=== PATIENT | female | born 2000 | race American Indian/Alaskan Native ===

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

== ENCOUNTER 2021-10-09 05:08 | Emergency (ER) | payer MEDICAID ==
[2021-10-09 05:27] VITALS: BP 125/64
[2021-10-09] MEDS ORDERED: methylPREDNISolone Sod Succinate 125 MG/2 ML INJ IM ONE (06:22)
[2021-10-09] MEDS ORDERED: FAMOTIDINE 20 MG TAB PO ONE (06:22)
[2021-10-09] MEDS ORDERED: diphenhydrAMINE 25 MG CAP PO ONE (06:22)
--- NOTE | 2021-10-09 06:26 | Emergency Department Report ---
ED Allergic Reaction HPI - General Chief complaint: Allergic Reaction Stated complaint: THROAT PAIN Time Seen by Provider: 10/09/21 06:07 Source: patient Mode of arrival: Ambulatory Limitations: No Limitations - History of Present Illness Initial Comments: 21-year-old black female with no past medical history presents to the emergency department for evaluation of possible allergic reaction. She states that last night around 10 PM she smoked some weed that she got from another person and she was eating at a barbecue of a friend. She states that after smoking the week, she started to have tightness in her chest and she felt swelling and tingling in her face and throat along with swelling to her bilateral eye leads.. She states that she felt like she was going to . She states that she took 1 Benadryl that made her feel some better but she still has tingling and swelling in her throat and is here for further evaluation. MD Complaint: allergic reaction -: Sudden Exposure: unknown Symptoms: facial swelling, difficulty swallowing, difficulty breathing Severity: moderate Treatment Prior to Arrival: benadryl Previous Allergy History: none - Related Data Previous Rx's Medication Instructions Recorded Last Taken Type Acetaminophen/Codeine [Tylenol 1 tab PO Q4HR PRN #12 tablet 03/16/18 Unknown Rx /Codeine # 3 tab] Clindamycin [Clindamycin CAP] 300 mg PO Q6H #56 capsule 03/16/18 Unknown Rx Clindamycin [Clindamycin CAP] 450 mg PO Q6HR #56 capsule 03/16/18 Unknown Rx Ibuprofen [Motrin 600 MG tab] 600 mg PO Q8H PRN #30 tablet 03/16/18 Unknown Rx EPINEPHrine [Epipen] 0.3 mg IJ ONCE PRN #1 pack 10/09/21 Unknown Rx Prednisone [predniSONE 10 mg 10 mg PO .TAPER #1 pack 10/09/21 Unknown Rx (6-Day Pack, 21 Tabs)] Allergies Allergy/AdvReac Type Severity Reaction Status Date / Time No Known Allergies Allergy Verified 03/16/18 03:34 ED Review of Systems ROS: Stated complaint: THROAT PAIN Other details as noted in HPI Comment: All other systems reviewed and negative Constitutional: denies: chills, fever Eyes: denies: eye pain, eye discharge ENT: denies: ear pain, throat pain, congestion Respiratory: shortness of breath. denies: cough, orthopnea, SOB with exertion, SOB at rest Cardiovascular: chest pain. denies: palpitations, dyspnea on exertion, orthopnea, edema, syncope, paroxysmal nocturnal dyspnea Endocrine: no symptoms reported Gastrointestinal: denies: abdominal pain, nausea, vomiting Genitourinary: denies: urgency, dysuria Musculoskeletal: denies: back pain Skin: denies: rash, lesions Neurological: denies: headache, weakness Psychiatric: denies: anxiety, depression Hematological/Lymphatic: denies: easy bleeding, easy bruising ED Past Medical Hx - Social History Smoking Status: Current Every Day Smoker Substance Use Type: Marijuana - Medications Home Medications: Home Medications Medication Instructions Recorded Confirmed Last Taken Type Acetaminophen/Codeine [Tylenol 1 tab PO Q4HR PRN #12 tablet 03/16/18 Unknown Rx /Codeine # 3 tab] Clindamycin [Clindamycin CAP] 300 mg PO Q6H #56 capsule 03/16/18 Unknown Rx Clindamycin [Clindamycin CAP] 450 mg PO Q6HR #56 capsule 03/16/18 Unknown Rx Ibuprofen [Motrin 600 MG tab] 600 mg PO Q8H PRN #30 tablet 03/16/18 Unknown Rx EPINEPHrine [Epipen] 0.3 mg IJ ONCE PRN #1 pack 10/09/21 Unknown Rx Prednisone [predniSONE 10 mg 10 mg PO .TAPER #1 pack 10/09/21 Unknown Rx (6-Day Pack, 21 Tabs)] ED Physical Exam - General Limitations: No Limitations General appearance: alert, in no apparent distress - Head Head exam: Present: atraumatic, normocephalic - Expanded Eye Exam Expanded Eyelids: Swelling: Bilateral Pupils: Regular, Round: Bilateral, Reactive: Bilateral Sclera/Conjunctival: Normal Inspection: Bilateral - ENT ENT exam: Present: mucous membranes moist. Absent: normal orophraynx (Erythema and edema noted to posterior oropharynx) - Expanded ENT Exam Expanded Mouth exam: Absent: drooling, trismus Throat exam: Positive: tonsillar erythema, tonsillomegaly. Negative: normal inspection, tonsillar exudate, R peritonsillar mass, L peritonsillar mass - Neck Neck exam: Present: normal inspection, tenderness. Absent: lymphadenopathy - Respiratory Respiratory exam: Present: normal lung sounds bilaterally. Absent: respiratory distress, wheezes, rales, rhonchi, stridor, chest wall tenderness, accessory muscle use - Cardiovascular Cardiovascular Exam: Present: regular rate, normal heart sounds - GI/Abdominal GI/Abdominal exam: Present: soft, normal bowel sounds. Absent: distended, guarding, rebound, rigid - Extremities Exam Extremities exam: Present: normal inspection - Back Exam Back exam: Present: normal inspection - Neurological Exam Neurological exam: Present: alert, oriented X3, normal gait - Psychiatric Psychiatric exam: Present: normal affect, normal mood - Skin Skin exam: Present: warm, dry, intact, normal color ED Course Vital Signs 10/09/21 10/09/21 05:25 05:26 Temperature 98.5 F Pulse Rate 88 91 H Respiratory 18 Rate Blood Pressure 125/64 O2 Sat by Pulse 100 100 Oximetry ED Medical Decision Making - Medical Decision Making 21-year-old black female with no past medical history presents to the emergency department for evaluation of possible allergic reaction. She states that last night around 10 PM she smoked some weed that she got from another person and she was eating at a barbecue of a friend. She states that after smoking the week, she started to have tightness in her chest and she felt swelling and tingling in her face and throat along with swelling to her bilateral eye leads.. She states that she felt like she was going to . She states that she took 1 Benadryl that made her feel some better but she still has tingling and swelling in her t hroat and is here for further evaluation. Patient noted to have erythema and swelling to posterior oropharynx along with bilateral tonsils. Swelling also noted to bilateral eyelids and minimal swell ing noted to bilateral face. Patient states that chest tightness and shortness of breath has mostly resolved. No acute distress noted. She will be treated with a one-time dose of Solu-Medrol 125 IM along with 40 of Pepcid p.o. and Benadryl 25 mg p.o. in the emergency department and sent home with steroid pack EpiPen. She is advised to follow-up with book mender for further evaluation. She verbalized understanding of and agreement with plan of care. Critical care attestation.: If time is entered above; I have spent that time in minutes in the direct care of this critically ill patient, excluding procedure time. ED Disposition Clinical Impression: Allergic reaction Qualifiers: Encounter type: initial encounter Qualified Code(s): T78.40XA - Allergy, unspecified, initial encounter Disposition: HOME / SELF CARE / HOMELESS Is pt being admited?: No Does the pt Need Aspirin: No Condition: Stable Instructions: Allergies, Adult, [id number], How to Use an Auto-Injector Pen, Bronchospasm, Adult, [id number] Additional Instructions: Take medications as prescribed. Follow-up with primary care provider. Prescriptions: EPINEPHrine [Epipen] 0.3 mg IJ ONCE PRN #1 pack PRN Reason: Anaphylaxis Prednisone [predniSONE 10 mg (6-Day Pack, 21 Tabs)] 10 mg PO .TAPER #1 pack Referrals: SHANITA VENEGAS MD [Staff Physician] - 3-5 Days Forms: Work/School Release Form(ED)
== END 2021-10-09 07:30 | disposition home or self-care (01) ==
LOC: ED 05:08
DX: T78.40XA Allergy, unspecified, initial encounter (principal); X58.XXXA Exposure to other specified factors, initial encounter; F17.200 Nicotine dependence, unspecified, uncomplicated; F12.90 Cannabis use, unspecified, uncomplicated
CPT/HCPCS: 96372; 99282; J2930